=== PATIENT | female | born 1990 | race Caucasian/White ===

== ENCOUNTER 2024-10-08 16:20 | Emergency (ER) | payer BC, SELFPAY ==
[2024-10-08 16:36] VITALS: BP 153/88; PULSE 75; RESP 18; TEMP 36.9; O2SAT 97
--- NOTE | 2024-10-08 16:51 | XR_ITS ---
Examination: CT abdomen and pelvis without contrast. Coronal 3-D reconstructions. Sagittal 2-D reconstructions. Date and time of exam:CT and 25 1813 hrs. Indications: Onset left-sided flank pain today CTDI: vol (mGy): 19.7 DLP: (mGycm): 1219 Technique: Axial images of the abdomen have been obtained, 3 mm slice thickness Intravenous contrast material has not been administered. Low dose protocols were performed. One or more of the following dose reduction techniques were used; automated exposure control, adjustment of the mA and/or KV according to patient size, use of iterative reconstruction technique. Findings: Fatty infiltration throughout the liver no focal liver or splenic lesions No definite gallstones No pancreatic or adrenal mass Mild left hydronephrosis secondary to 3 mm proximal left ureteral calculus Aorta normal size No bowel obstruction Normal appendix No pelvic mass No bladder mass or bladder calculi Advanced degenerative disc disease L5-S1 Impression: Mild left hydronephrosis secondary to 3 mm proximal left ureteral calculus
--- NOTE | 2024-10-08 16:52 | PD.EDRME ---
Rapid Medical Screening Exam RME Arrival date/time: 10/08/24 16:20 34-year-old female presents the emergency department complaints of back pain and abdominal pain Chief Complaint: Back Pain/Injury Time Seen by Provider: 10/08/24 16:31 Vital signs: Vital Signs Temperature 98.5 F 10/08/24 16:36 Pulse Rate 75 10/08/24 16:36 Respiratory Rate 18 10/08/24 16:36 Blood Pressure 153/88 H 10/08/24 16:36 Pulse Oximetry (%) 97 10/08/24 16:36 Oxygen Delivery Method Room Air 10/08/24 16:36
[2024-10-08 17:23] LABS: Collection Type, Urine Clean Catch
[2024-10-08 17:26] LABS: Basophils # (Auto) 0.1 Thou/mm3 (0.0-0.2); Basophils % (Auto) 1 % (0-2.5); Eosinophils # (Auto) 0.3 Thou/mm3 (0.0-0.5); Eosinophils % (Auto) 3 % (0-10); Hematocrit 38.8 % (36.0-46.0); Hemoglobin 13.1 g/dL (12.0-16.0); Immature Granulocytes % (Auto) 0 % (0-0); Immature Granulocytes Auto 0.02 Thou/mm3 (0.00-0.00); Lymphocytes # (Auto) 1.9 Thou/mm3 (1.0-4.8); Lymphocytes % (Auto) 18 % (10-50); Mean Corpuscular HGB Conc 33.8 g/dl (31.0-37.0); Mean Corpuscular Hemoglobin 27.6 pg (25.0-35.0); Mean Corpuscular Volume 82 fL (80-100); Monocytes # (Auto) 0.7 Thou/mm3 (0.0-0.8); Monocytes % (Auto) 7 % (0-12); Neutrophils # (Auto) 7.2 Thou/mm3 (1.8-7.7); Neutrophils % (Auto) 71 % (37-80); Nucleated Red Blood Cell % 0 /100 WBC (0); Platelet Count 238 Thou/mm3 (140-440); RDW Standard Deviation 41.6 fL (36.4-46.3); Red Blood Count 4.74 Miln/mm3 (4.00-5.20); White Blood Count 10.2 Thou/mm3 (3.6-11.0)
[2024-10-08 17:32] LABS: HCG Qualitative,Urine Negative
[2024-10-08 17:37] LABS: Bilirubin,Urine Negative (Negative); Blood,Urine 2+ (Negative); Clarity,Urine Clear (Clear/Hazy); Color,Urine Lt-Yellow (Lt Yel-Yel); Culture Indicated,Urine Not Indicated; Glucose, Urine Negative (Negative); Ketones,Urine Negative (Negative); Leukocyte Esterase,Urine Positive (Negative); Nitrite,Urine Negative (Negative); PH,Urine 6.5 (5.0-7.0); Protein,Urine Trace (Neg - Trace); RBC,Urine 38 /hpf (0-3); Specific Gravity,Urine 1.021 (1.001-1.035); Squamous Epithelial Cell,Urine 18 /hpf (0-5); Urobilinogen,Urine Negative mg/dL (0.0-1.0); WBC,Urine 4 /hpf (0-5)
[2024-10-08 17:53] LABS: Alanine Aminotransferase 47 U/L (10-49); Albumin, Serum 4.5 gm/dL (3.5-5.0); Albumin/Globulin Ratio 1.5 (1.2-2.2); Alkaline Phosphatase 75 U/L (46-116); Anion Gap 9 (7-16); Aspartate Amino Transferase 32 U/L (0-34); BUN/Creatinine Ratio 12 Ratio (12-20); Bilirubin,Total 0.5 mg/dL (0.3-1.2); Blood Urea Nitrogen 12 mg/dL (9-23); Calcium 9.4 mg/dL (8.3-10.6); Calcium (Corrected) 9.4 mg/dL (8.5-10.1); Carbon Dioxide 24.8 mMol/L (20.0-31.0); Chloride 107 mMol/L (98-107); Globulin 3.1 gm/dL (2.3-3.5); Glucose 96 mg/dL (74-106); Lipase 30 U/L (12-53); Osmolality,Calculated 280 (275-295); Potassium 3.8 mMol/L (3.4-5.1); Sodium 141 mMol/L (136-145); Total Protein 7.6 gm/dL (5.7-8.2); eGFR > 60 See Note
[2024-10-08] MEDS: KETOROLAC INJ 30 MG/ML VIAL IM (19:11)
[2024-10-08] MEDS: ONDANSETRON ODT 4 MG TABRAP PO (19:12)
--- NOTE | 2024-10-08 19:37 | PD.EDBACK ---
ED Back Injury Pain RME/HPI General Chief Complaint: Back Pain/Injury Stated Complaint: Left lower back/ flank pain since 0700 Time Seen by Provider: 10/08/24 16:31 Source: patient Arrival date/time: 10/08/24 16:20 Mode of arrival: ambulatory Limitations: no limitations RME / HPI RME / HPI Narrative: 10/08/24 16:20 34-year-old female presents the emergency department complaints of back pain and abdominal pain. Dr. Kaminski?s Main ED Evaluation: This is a 34-year-old female who presents to the Emergency Department ambulatory via private vehicle, complaining of sharp left lower back and flank pain radiating to the right side. She describes the pain as similar to what she previously experienced with kidney stones about 5 years ago. In addition to the pain, she reports associated symptoms of nausea, vomiting, chills, and hot flashes. She notes that the pain intermittently improves but then worsens again, creating a fluctuating pattern of discomfort. She admits to frequent consumption of Red Bull and coffee. During this encounter, she has experienced pain relief after receiving Toradol here. Related Data Previous Rx's ?Medication ?Instructions ?Recorded naproxen 500 mg tablet (Naprosyn) 500 mg PO BID #30 tabs 01/16/20 hydrocodone 5 mg-acetaminophen 325 1 tab PO Q4H PRN pain 3 days #14 10/08/24 mg tablet tabs ibuprofen 600 mg tablet 600 mg PO Q6H PRN pain 5 days #20 10/08/24 tabs Allergies Allergy/AdvReac Type Severity Reaction Status Date / Time No Known Allergies Allergy Verified 10/08/24 16:26 Review of Systems Review of Systems Systems Reviewed: All systems reviewed, normal except as documented Past Medical History Past Medical History CARDIAC: Negative Congestive Heart Failure RESPIRATORY: Negative Chronic Obstructive Pulmonary Disease (COPD) GENITOURINARY: Negative Renal Disease ENDOCRINE: Negative Diabetes Mellitus Type 1 or Diabetes Mellitus Type 2 Social History SMOKING STATUS: Never smoker ED Exam Narrative Physical exam: GENERAL APPEARANCE: alert and oriented x 4, well-developed, well-nourished, no acute distress VITALS: All vitals were reviewed and the pulse ox is 97% on room air, which is normal according to my interpretation. HEENT: Normocephalic, atraumatic; pupils equal, round, reactive to light; EOMI; mucous membranes pink, moist; oropharynx clear NECK: Supple LUNGS: CTABL; no wheezes, no rales, no rhonchi HEART: Regular rate, regular rhythm; normal S1, S2; no murmurs ABDOMEN: non distended; normal BS; soft, mild tenderness, no guarding, no rebound; no masses, no organomegaly, no hernia BACK: no CVA tenderness EXTREMITIES: atraumatic; no edema NEUROLOGIC: awake; alert and oriented x4; cranial nerves II-XII grossly intact; no focal sensory or motor deficits PSYCHIATRIC: appropriate mood and affect SKIN: warm, dry, normal color; no rashes General Limitations: Present no limitations Course Quality Measures none Orders Category Date Time Status CT abdomen pelvis wo con Stat Exams 10/08/24 16:51 Completed CBC Stat Lab 10/08/24 17:17 Completed Comprehensive Metabolic Panel Stat Lab 10/08/24 17:17 Completed HCG Qualitative,Urine Stat Lab 10/08/24 17:00 Completed Lipase Stat Lab 10/08/24 17:17 Completed UA, C/S IF [Urinalysis, C/S if Indicated] Stat Lab 10/08/24 17:00 Completed Ketorolac Inj [Toradol Inj] Med 10/08/24 19:05 Discontinued 30 mg IM X1 ONE Ondansetron Odt [Zofran Odt] Med 10/08/24 19:04 Discontinued 4 mg PO X1 ONE Vital Signs Vital signs: Vital Signs Temperature 98.5 F 10/08/24 16:36 Pulse Rate 75 10/08/24 16:36 Respiratory Rate 18 10/08/24 16:36 Blood Pressure 153/88 H 10/08/24 16:36 Pulse Oximetry (%) 97 10/08/24 16:36 Oxygen Delivery Method Room Air 10/08/24 16:36 Back Pain / Injury MDM Narrative MDM Narrative:: Scribe Attestation: Nadia No am scribing for and in the presence of Dr. Kaminski. Provider Notation: Although this document has been carefully reviewed, there may still be some phonetic and other typographical errors. These errors are purely grammatical due to imperfections in the software program and should not be construed in any way to compromise the substance of the patient's medical care during this visit. Patient data External records reviewed:: [facility] previous records Clinical information provided by:: patient Social determinants that could affect healthcare access:: none Patient has the following chronic illnesses:: see PMH How is presenting disease/condition affected by chronic disease/condition?: uneffected by Evaluation data The following diagnostics were reviewed and interpreted by me:: lab results and radiology exam(s) Lab and/or radiology exams considered but not ordered:: na Interpretation Summary: I personally reviewed the radiology data and agree with the radiologist's interpretation. Examination: CT abdomen and pelvis without contrast. Date and time of exam:CT and 25 3 hrs. Indications: Onset left-sided flank pain today Findings: Fatty infiltration throughout the liver no focal liver or splenic lesions No definite gallstones No pancreatic or adrenal mass Mild left hydronephrosis secondary to 3 mm proximal left ureteral calculus Aorta normal size No bowel obstruction Normal appendix No pelvic mass No bladder mass or bladder calculi Advanced degenerative disc disease L5-S1 Impression: Mild left hydronephrosis secondary to 3 mm proximal left ureteral calculus Dictated By: Rishi Dawson MD Medications / Prescriptions Medications or Prescriptions considered but not ordered:: na Medication administrations:: Medication Administration History Discontinued Medications Ketorolac Tromethamine (Ketorolac Inj 30 Mg/Ml Vial) 30 mg IM X1 ONE Stop: 10/08/24 19:06 Last Admin: 10/08/24 19:11 Dose: 30 mg Documented By: RAYMOND Ondansetron HCl (Ondansetron Odt 4 Mg Tabrap) 4 mg PO X1 ONE; Protocol Stop: 10/08/24 19:05 Last Admin: 10/08/24 19:12 Dose: 4 mg Documented By: RAYMOND as above Consultations Consultation(s) initiated? (list below): No Diagnosis Differential diagnosis back pain/injury: renal colic, pyelonephritis and other (contusion, musculoskeletal pain) Most likely diagnosis given after review of the tests above:: see below Admission Indicated Admission indicated?: not indicated Admission Request Was there a request for admission?: No Disposition Plan Disposition Plan: Discharge Discharge Attestation Discharge Attestation: The patient and all family members were given an opportunity to ask questions and understood the discharge instructions. Discharge instructions specifically effects, indications for sooner follow up or return to the emergency department, and the expected course of current diagnosis. Patient condition: Stable Discharge Plan Plan Patient Disposition: HOME (Self Care) Disposition Comment: Stable for discharge Patient condition on transfer: Stable Prescriptions/Referrals Prescriptions/Med Rec: New ibuprofen 600 mg tablet 600 mg PO Q6H PRN (Reason: pain) 5 Days Qty: 20 0RF hydrocodone-acetaminophen 5-325 mg tablet 1 tab PO Q4H MDD 6 tabs PRN (Reason: pain) 3 Days Qty: 14 0RF No Action naproxen [Naprosyn] 500 mg tablet 500 mg PO BID Qty: 30 0RF Referrals: Beth Thurston NP [Primary Care Provider] - In 1 week Problem List Clinical Impression: Renal colic Patient/Caregiver Discharge Instructions Discharge Activity: activity as tolerated Diet Instructions: No restrictions Education Materials: ED Kidney Stone w/ Colic Additional Instructions: Today your CAT scan showed that you have a small, 3 mm, kidney stone which is working its way towards your bladder. This is a very painful process as you had found out. The pain should only last a week or less. If you feel like you are worsening in any way or if you are not improving please return to the ER and we will help you You should follow-up with your primary care doctor within the next several days. Ask your primary doctor to refer you to a specialist. The specialist for kidney stones is called a urologist. There are 2 pain medications waiting for you at the pharmacy. One of them is ibuprofen 600 mg. You can take this every 6 hours and I would do that for the next at least 2 days for pain. You should do this even if you are not feeling particularly severe pain as ibuprofen is an anti-inflammatory and this will help. The other pain medication is [place]. This is hydrocodone with some Tylenol. You cannot drive after taking this medication. This is best taken before you go to sleep. Print Language: Cambodian Stand Alone Forms: [place] Award Info., Patient Portal Info Letter
== END 2024-10-08 20:55 | disposition home or self-care (01) ==
PROVIDERS: Nurse Practitioner Primary Care; Emergency Provider Emergency Medicine; PCP Nurse Practitioner Family
DX: N13.2 Hydronephrosis with renal and ureteral calculous obstruction (principal)
CPT/HCPCS: 36415; 74176; 80053; 81001; 81025; 83690; 85025; 96372; 99284; J1885; Q0162